=== PATIENT | male | born 1975 | race African-American/Black ===

== ENCOUNTER 2021-09-22 15:37 | Emergency (ER) | payer MEDICAID ==
[2021-09-22 15:45] VITALS: BP 131/95
--- NOTE | 2021-09-22 16:18 | ED Physician Documentation ---
PD HPI HEENT - Stated complaint Stated Complaint: TOOTH/HEAD PX - Chief complaint Chief Complaint: Heent - History obtained from History obtained from: Patient - History of Present Illness Timing - onset: How many days ago (several days of right upper tooth to maxillary pain.) Timing - duration: Days (several) Timing - details: Gradual onset, Still present Location: Tooth (right upper molars area with some gum swelling and feeling pain/pressure to right maxillary sinus and toward right infraorbital area.) Associated symptoms: No: Fever, Congestion, Rhinorrhea, Facial swelling Similar symptoms before: Diagnosis (dental infections in the past.) Recently seen: Not recently seen (he has dentist in [place], but they will were not able to get him an appt soon.) Review of Systems Constitutional: reports: Myalgias, Fatigue. denies: Fever, Chills Eyes: denies: Decreased vision, Photophobia Nose: denies: Rhinorrhea / runny nose, Congestion Throat: reports: Dental pain / toothache. denies: Sore throat Respiratory: denies: Cough Neurologic: denies: Generalized weakness, Confused, Altered mental status, Headache PD PAST MEDICAL HISTORY - Past Medical History Cardiovascular: None Respiratory: None Neuro: None Endocrine/Autoimmune: None - Present Medications Home Medications: Ambulatory Orders Medication Instructions Recorded Confirmed Chlorhexidine Gluconate [Peridex] 15 ml MM TID #118 ml 09/22/21 HYDROcod/ACETAM 5/325 [[place] 5/325] 1 ea PO Q6H PRN #18 tablet 09/22/21 clindamycin HCL [Clindamycin HCl] 300 mg PO TID 7 Days #20 cap 09/22/21 - Allergies Allergies/Adverse Reactions: Allergies Allergy/AdvReac Type Severity Reaction Status Date / Time No Known Drug Allergies Allergy Verified 09/22/21 15:45 - Living Situation Living Situation: reports: Alone Living Arrangement: reports: At home - Social History Does the pt smoke?: Yes Smoking Status: Current every day smoker PD ED PE NORMAL - Vitals Vital signs reviewed: Yes - HEENT HEENT: PERRL, EOMI, Moist mucous membranes, Pharynx benign. No: Dentition benign (extensive caries. Right upper third molar with decay, tenderness to palpation in gum and percussion of the tooth. NO fluctuance noted in gum.) Results - Vitals Vitals: Vital Signs - 24 hr 09/22/21 09/22/21 15:42 17:03 Temperature 36.8 C Heart Rate 77 78 Respiratory 16 14 Rate Blood Pressure 131/95 H O2 Saturation 98 Oxygen O2 Source Room air PD MEDICAL DECISION MAKING - ED course Complexity details: reviewed old records, considered differential (seems like dental infection. No MARKY Forms. ), d/w patient, d/w family Departure - Departure Disposition: 01 Home, Self Care Clinical Impression: Pain, dental, Infected dental caries Condition: Stable Record reviewed to determine appropriate education?: Yes Instructions: ED Abscess Dental Prescriptions: clindamycin HCL [Clindamycin HCl] 300 mg PO TID 7 Days #20 cap HYDROcod/ACETAM 5/325 [[place] 5/325] 1 ea PO Q6H PRN #18 tablet PRN Reason: Pain Chlorhexidine Gluconate [Peridex] 15 ml MM TID #118 ml Comments: It does seem like a dental infection related to the cavities and decay. Clindamycin 3 times daily for a week antibiotic. Use ibuprofen or naproxen 2-3 times daily. To that add Tylenol every 4-6 hours if needed for pain or hydrocodone if needed for worse pain. Chlorhexidine oral rinse once or twice daily to help clear some of the germs around the gumline in the teeth. Swish and spit out. I transmitted your prescriptions to [facility] pharmacy. You will need to follow-up with your dental clinic in [place] for more de finitive care of the tooth. I am prescribing a short course of narcotic pain medication for you. These are potentially dangerous and addictive medications that should be used carefully. These medications may constipate you. Take an hiki-[id number]-domferu stool softener such as docusate twice daily with plenty of water while taking these medications. If you go 24 hours without a bowel movement, take [id number] MiraLAX, per package instructions. Do not drink or drive while taking these medications. If you received narcotic or sedating medications while in the emergency department do not drive for 24 hours. Store this medication in a safe, secure place and out of reach of children. It is a violation of federal law to give or sell this medication to another person or to use in a manner other than prescribed. The ED will not refill narcotic prescriptions, including prescriptions lost or stolen. You can dispose of unwanted medications at the [facility]'s office or at several pharmacies such as [facility]. Discharge Date/Time: 09/22/21 17:03
[2021-09-22] MEDS ORDERED: CLINDAMYCIN 150 MG CAPSULE PO STA (16:43)
[2021-09-22] MEDS ORDERED: HYDROcod/ACETAM 5/325 MG TABLET PO STA (16:43)
== END 2021-09-22 17:03 | disposition home or self-care (01) ==
LOC: ED 15:37
DX: K02.9 Dental caries, unspecified (principal)
CPT/HCPCS: 99282; 99283; A9270